=== PATIENT | female | born 1995 | race Caucasian/White ===

== ENCOUNTER 2020-06-01 03:30 | Emergency (ER) | payer BC, MEDICAID ==
[2020-06-01] MEDS ORDERED: IPRATROPIUM/ALBUTEROL 0.5-2.5 MG/3 ML AMPUL NEB ONE (03:47)
--- NOTE | 2020-06-01 05:13 | ER Document Report ---
HPI - HPI Time Seen by Provider: 06/01/20 05:06 Pain Level: Denies Context: Patient is a 24-year-old female with a history of asthma that comes to the emergency department for chief complaint of wheezing that started after she helped clean the house earlier. She states she thinks it was more dust caused as opposed to chemical caused, she denies fever, cough, shortness of breath, or any current symptoms. She received a DuoNeb treatment upon arrival to the emergency department after she was noted to be wheezing, she states her symptoms completely resolved, she has no current complaints. She did try to use albuterol at home prior to coming but this did not seem to help. She has a rescue inhaler. She denies other medical history. She denies , LMP within the past month. - CONSTITUTIONAL Constitutional: DENIES: Fever, Chills - EENT EENT: DENIES: Sore Throat, Ear Pain, Eye problems - NEURO Neurology: DENIES: Headache, Weakness, Vision blurred, Dizzinesss / Vertigo - CARDIOVASCULAR Cardiovascular: DENIES: Chest pain - RESPIRATORY Respiratory: REPORTS: Trouble Breathing - SOB. DENIES: Coughing - GASTROINTESTINAL Gastrointestinal: DENIES: Abdominal Pain, Black / Bloody Stools - URINARY Urinary: DENIES: Dysuria, Urgency, Frequency - MUSCULOSKELETAL Musculoskeletal: DENIES: Extremity pain Past Medical History - General Information source: Patient - Social History Smoking Status: Never Smoker Chew tobacco use (# tins/day): No Frequency of alcohol use: None Drug Abuse: None Lives with: Family Family History: Reviewed & Not Pertinent Patient has homicidal ideation: No Pulmonary Medical History: Reports: Hx Asthma - Immunizations Immunizations up to date: Yes Hx Diphtheria, Pertussis, Tetanus Vaccination: Yes Vertical Provider Document - CONSTITUTIONAL General Appearance: WD/WN, No Apparent Distress - HEENT HEENT: Atraumatic, Normal ENT Exam, Normocephalic, PERRLA. negative: Conjuctival Injection, Pharyngeal Exudate, Pharyngeal Tenderness, Pharyngeal Erythema - NECK Neck: Normal Inspection - RESPIRATORY Respiratory: Breath Sounds Normal, No Respiratory Distress, Chest Non-Tender. negative: Wheezing - CARDIOVASCULAR Cardiovascular: Regular Rate, Regular Rhythm. negative: Tachycardia - GI/ABDOMEN Gastrointestinal: Abdomen Soft, Abdomen Non-Tender - BACK Back: Normal Inspection - MUSCULOSKELETAL/EXTREMETIES Musculoskeletal/Extremeties: MAEW, FROM, Non-Tender - NEURO Level of Consciousness: Awake, Alert, Appropriate Motor/Sensory: No Motor Deficit, No Sensory Deficit - DERM Integumentary: Warm, Dry, No Rash Course - Re-evaluation Re-evalutation: Patient already had resolution of her symptoms, she was already treated with DuoNeb before I saw the patient. She has clear lungs, no hypoxia, no symptoms on my evaluation, unremarkable physical exam. Discussed options, patient was provided with prednisone in case she needs it for mild asthma exacerbation but she is not given a dose here, patient will start by taking her albuterol only. Discussed follow-up and return precautions in detail. Patient and father state understanding and agreement with plan. Stable and well-appearing at time of discharge with no current symptoms. - Vital Signs Vital signs: Temp Pulse Resp BP Pulse Ox 98.3 F 101 H 26 H 124/84 98 06/01/20 03:37 06/01/20 03:37 06/01/20 03:37 06/01/20 03:37 06/01/20 03:37 Discharge - Discharge Clinical Impression: Wheezing Asthma exacerbation Qualifiers: Asthma severity: mild Asthma persistence: intermittent Qualified Code(s): J45.21 - Mild intermittent asthma with (acute) exacerbation Condition: Stable Disposition: HOME, SELF-CARE Additional Instructions: Your evaluation is consistent with a mild asthma exacerbation. You have been provided with steroids to take for your symptoms. Continue albuterol if needed, follow-up with primary care for additional management. Return if you worsen including difficulty breathing, developing fever, or any other concerning or worsening symptoms. Prescriptions: Prednisone [Deltasone 20 mg Tablet] 3 tab PO DAILY 5 Days #15 tablet
[2020-06-01 05:23] VITALS: BP 127/78
== END 2020-06-01 05:24 | disposition home or self-care (01) ==
LOC: ER 03:30
DX: J45.21 Mild intermittent asthma with (acute) exacerbation (principal); R06.02 Shortness of breath
CPT/HCPCS: 94640; 99283